=== PATIENT | female | born 1960 | race Caucasian/White ===

== ENCOUNTER 2021-07-22 02:30 | Inpatient (IN) | payer BC, SELFPAY ==
[2021-07-22] VITALS (12 sets, daily range): BP systolic 117–153; BP diastolic 58–91; PULSE 67–92; RESP 13–20; TEMP 35.8–37.3; O2SAT 94–100; BMI 28.1; BMI 32.5; BMI 31.1
--- NOTE | ~2021-07-22 | CT_ITS ---
EXAMINATION: CT FACIAL BONES WITHOUT CONTRAST CLINICAL INFORMATION: Surgical emphysema post dental extraction left side COMPARISON: None TECHNIQUE: Noncontrast multidetector helical imaging was performed through the maxillofacial bones. Coronal and sagittal reformatted images were created. This CT examination was performed using dose optimization techniques as appropriate, variously including the following: *Automated exposure control *Adjustment of mA and/or kV according to patient size (this includes techniques or standardized protocols for targeted exams where dose is matched to indication/reason for exam; i.e. extremities or head) *Use of iterative reconstruction technique DLP: 353 mGy-cm FINDINGS: There are numerous foci of gas in the left side of the face adjacent to the mandible, in the form drafter space, retromaxillary region, parapharyngeal fat, and parotid space as well as extending inferiorly into the submandibular space and tracking along the left sternocleidomastoid muscle; there is also superior extension into the left temporal and periorbital regions including the lateral extraconal fat of the orbit. There is some associated fat stranding throughout the affected left facial region. No discrete fluid collection is seen, though assessment is somewhat limited without intravenous contrast. No acute maxillofacial fractures are seen. The frontal, maxillary, ethmoid, and sphenoid sinuses are well aerated. The uncinate process is normal bilaterally. The infundibula and middle meati are patent. There is leftward deviation of nasal septum. The mandibular condyles are well-seated in the condylar fossa. The globes are intact, and there are no suspicious findings to suggest retrobulbar hemorrhage. Visualized portions of the brain parenchyma are unremarkable. CT/CT facial bones wo con IMPRESSION: Extensive soft tissue gas tracking along the left aspect of the face and neck as described above with some associated soft tissue swelling. No discrete fluid collection identified.
--- NOTE | 2021-07-22 03:41 | ED_ITS ---
HPI - Dental/Oral General Chief complaint: Dental/Oral Stated complaint: dental pain Time Seen by Provider: 07/22/21 03:41 Source: patient Mode of arrival: ambulatory Limitations: no limitations History of Present Illness HPI Narrative: Patient had a dental procedure feeling a deep cavity in left lower premolar area around 17:30 yesterday since the end of the procedure patient noticed swelling of the left face which gradually got worse feel crepitation when she palpated going all the way to the upper neck on the left side-patient denies any difficulty in swallowing or breathing Related Data Home Medications Medication Instructions Recorded Confirmed No Known Home Meds 07/22/21 07/22/21 Allergies Allergy/AdvReac Type Severity Reaction Status Date / Time No Known Drug Allergies Allergy Unknown Unknown Verified 07/22/21 05:32 Review of Systems Review of Systems: Yes all other systems are reviewed and are negative [facility] Social History Social History Alcohol intake: never Patient Tobacco Use Status: Never used Tobacco Smoked in Last 30 Days: No Use of substances other than those prescribed or required for medical reasons: No Advance Directives: No Advance Directives Information Provided: No Physical Exam Vital Signs: Vital Signs: Last Vital Signs Temp 97.9 F 07/22/21 05:37 Pulse 74 07/22/21 05:37 Resp 16 07/22/21 05:37 BP 146/90 H 07/22/21 05:37 Pulse Ox 100 07/22/21 05:37 Body Mass Index 28.1 Const: General: no acute distress and well developed HENMT: Face images: 1. Soft tissue swelling left cheek all the way to the lower eyelid extending to the preauricular area with crepitation Mouth: Normal oral and palatal mucosa present Teeth and gingiva: dentition normal Throat: Yes posterior oropharynx normal Eyes: Other: Swelling left infraorbital area EOMI Neck: Other: Slight soft tissue swelling left side crepitation palpable till mid neck on the left side around SCM muscle Neck: Yes full ROM Chest: Chest palpation & inspection: normal inspection of the chest and normal palpation of entire chest wall Cardio: Rate: regular rate Rhythm: regular rhythm Heart sounds: S1 kyra l heart sound present and S2 normal heart sound present Peripheral pulses: Peripheral pulses 2+ throughout MDM - Dental/Oral MDM Narrative Medical decision making narrative: Patient with surgical emphysema post dental work no airway compromise at this time would get the CT scan to see the extent of erythema. CT scan showed surgical emphysema extending to the neck, sternocleidomastoids muscle , 100% non-rebreather oxygen was applied patient started feeling little better and swelling is slightly getting better. Case discussed with Dr. Mohr college physics instructor will keep patient for observation in ICU will give prophylactic Zosyn and 100% non-rebreather oxygen and watch for airway 5 am No dysarthria no swallowing problem no difficulty in breathing at this time Lab Data Result diagrams: 07/22/21 05:35 07/22/21 05:35 Discharge Plan Discharge Clinical Impression: Emphysema (subcutaneous) (surgical) resulting from a procedure Qualifiers: Encounter type: initial encounter Qualified Code(s): T81.82XA - Emphysema (subcutaneous) resulting from a procedure, initial encounter Patient Disposition: Admitted As Inpatient
--- NOTE | 2021-07-22 05:00 | PC.NURSE ---
PATIENT UP AND ABLE O AMBULATE STEADILY TO THE RESTROOM, AWAITING RESULTS FROM CT SCAN. PATIENT IS BREATHING WITH NO DISTRESS, TALKING IN FULL CLEAR SENTENCES. ON A NON-REBREATHER TO HELP WITH FREE AIR IN SOFT TISSUE OF THE FACE. PATIENT STATING FEELING THE PRESSURE GOING DOWN SINCE STARTING O2 TREATMENT.
--- NOTE | 2021-07-22 05:23 | PC.NURSE ---
PROVIDER CONTACTING TRANSIT PLANNING DIRECTOR REGARDING MONITORING PATIENT TO SEE IF SWELLING REDUCES TO ENSURE NO AIRWAY INVOLVEMENT. PATIENT IS CONCERNED BUT SEEMS REASSURED ONCE SPEAKING WITH PROVIDER. PLAN FOR ICU ADMISSION
[2021-07-22 05:42] LABS: MANUAL DIFF FLAG NO
[2021-07-22 05:44] LABS: Basophils Absolute Auto 0.1 X10*3/uL (0.0-0.2); Basophils Percent Auto 0.6 % (0-2); Eosinophils Absolute Auto 0.1 X10*3/uL (0.0-0.4); Eosinophils Percent Auto 1.1 % (0-4); Hematocrit 43.5 % (37-47); Hemoglobin 14.7 g/dl (12.0-16.0); Imm Gran Abs Auto 0.04 X10*3/uL (0.00-0.03); Imm Gran Pct Auto 0.4 % (0.0-0.4); Lymphocytes Absolute Auto 2.2 X10*3/uL (1.2-4.9); Lymphocytes Percent Auto 20.5 % (20-40); Mean Corpuscular HGB Conc 33.8 g/dl (31.0-35.0); Mean Corpuscular Hemoglobin 30.7 pg (27.0-33.0); Mean Corpuscular Volume 90.8 fL (80-98); Mean Platelet Volume 9.5 fL (9.4-12.3); Monocytes Absolute Auto 0.7 X10*3/uL (0.1-1.2); Monocytes Percent Auto 6.8 % (2-11); Neutrophils Absolute Auto 7.6 X10*3/uL (2.0-8.3); Neutrophils Percent Auto 70.6 % (45-73); Platelet Count 367 X10*3/uL (160-400); Red Blood Count 4.79 X10*6/uL (4.20-5.50); White Blood Count 10.8 X10*3/uL (4.8-10.8)
--- NOTE | 2021-07-22 05:52 | PM.CCHP ---
History of Present Illness Date of Service: 07/22/21 Chief Complaint: Facial swelling This is a 60-year-old female with? no past medical history, who presented to the emergency room with? left facial swelling.? Patient reports she had a dental procedure for a filling of a left lower molar deep cavity? around 1700,? she noted she had left-sided? facial swelling that progressively got worse throughout the night. ? She also reports feeling crepitus? on left cheek. In the ED,? left facial swelling noted,? and crepitus extending from left lower eyelid? to neck region.? Vital signs are stable,? the patient is not in any respiratory distress. Face CT confirmed Extensive soft tissue gas tracking along the left aspect of the face and neck. Patient will be admitted into the ICU? for? closely airway monitoring from subcutaneous facial emphysema? Review of Systems Review of Systems: As stated on HPI, all other systems are negative PMFSH Family History Pertinent family history: Mother- , colon cancer Father- , pancreatic cancer Social History Social History Alcohol intake: never Patient Tobacco Use Status: Never used Tobacco Smoked in Last 30 Days: No Use of substances other than those prescribed or required for medical reasons: No Advance Directives: No Advance Directives Information Provided: No Meds Allergies Allergy/AdvReac Type Severity Reaction Status Date / Time No Known Drug Allergies Allergy Unknown Unknown Verified 07/22/21 05:32 Active Medications: Current Medications Generic Name Dose Route Start Last Admin Trade Name Freq PRN Reason Stop Dose Admin Enoxaparin Sodium 40 mg 07/22/21 06:00 Enoxaparin Sodium 40 Mg/0.4 Ml Syringe SUBCUT Q24H [facility] Home Medications Medication Instructions Recorded Confirmed Last Taken Type No Known Home Meds 07/22/21 07/22/21 Unknown History Physical Exam Vital Signs: Vital Signs: Last Vital Signs Temp 97.9 F 07/22/21 05:37 Pulse 74 07/22/21 05:37 Resp 16 07/22/21 05:37 BP 146/90 H 07/22/21 05:37 Pulse Ox 100 07/22/21 05:37 Body Mass Index 32.5 Constitutional: Alert, in no distress. Mental Status: Oriented to person, place and time. Head: Left sided swelling. Crepitus extending from left orbital to neck region Eyes: Pupils are equal, round and reactive to light. Extraocular muscles intact. Ear, Nose and Throat: Oropharynx clear, mucous membranes moist. Ears and nose without masses, lesions or deformities. Trachea midline. Neck: Supple, Full range of motion. Respiratory: Lungs CTA. No wheezing. Cardiovascular: S1 S2 regular. No murmurs, rubs or gallops. Gastrointestinal: Abdomen soft, non-tender, non-distended. Normal bowel sounds. No pulsatile mass. No hepatosplenomegaly. Genitourinary: No costovertebral angle tenderness. Neurologic: Cranial nerves II-XII grossly intact. No focal neurological deficits. Psychiatric: Normal mood and affect Results Labs CBC and Chem 7: 07/22/21 05:35 07/22/21 05:35 Labs: Laboratory Results - last 24 hr 07/22/21 05:35 MCV 90.8 MCH 30.7 MCHC 33.8 RDW 14.0 Plt Count 367 MPV 9.5 Immature Gran % (Auto) 0.4 Neut % (Auto) 70.6 Lymph % (Auto) 20.5 [place] % (Auto) 6.8 Eos % (Auto) 1.1 Baso % (Auto) 0.6 Lymph # (Auto) 2.2 [place] # (Auto) 0.7 Eos # (Auto) 0.1 Baso # (Auto) 0.1 Abs Immat Gran (auto) 0.04 H Absolute Neuts (auto) 7.6 Absolute Nucleated RBC 0.000 Nucleated RBC % (auto) 0.0 Imaging Radiologist's Impressions: Impressions Face CT 07/22/21 03:59 IMPRESSION: Extensive soft tissue gas tracking along the left aspect of the face and neck as described above with some associated soft tissue swelling. No discrete fluid collection identified. Assessment and Plan (1) Emphysema (subcutaneous) (surgical) resulting from a procedure: Qualifiers: Encounter type: initial encounter Qualified Code(s): T81.82XA - Emphysema (subcutaneous) resulting from a procedure, initial encounter Status: Acute ?60-year-old female with no significant past medical history status post dental procedure now with subcutaneous? facial emphysema Neuro:? No acute issues. Cardiac:? No acute issues. Pulmonary:?? Subcutaneous? facial emphysema form dental procedure:? she is protecting the airway, in no respiratory distress at this time.? ? Received augmentin in the ED? prophylactically.? Will continue antibiotics. Will cont to closely monitor airway.? Renal:? No acute issues.?? Endo:? No acute issues.?? GI:? No acute issues. ID:? No acute issues Heme/Onc:? No acute issues. Psych:? No acute issues. Miscellaneous:? No acute issues. Prophylaxis:? Lovenox , doesn't require GI prophylaxis Diet:? NPO until speech eval? Critical care time spent:? 45 minutes Case discussed with Dr Mohr Critical Care Time 45
[2021-07-22 05:57] LABS: Anion Gap 14 (12-20); Blood Urea Nitrogen 18 mg/dL (9-16); Calcium 9.8 mg/dL (8.4-10.2); Carbon Dioxide 24 mmol/L (22-29); Chloride 109 mmol/L (96-108); Creatinine Clr Calc Pharmacy 85.9; Estimated Glomerular Filt Rate > 60; Glucose Random 106 mg/dL (60-115); Potassium 4.5 mmol/L (3.3-5.1); Sodium 142 mmol/L (135-145)
[2021-07-22 06:07] LABS: COVID-19 Test Negative (Negative)
[2021-07-22] MEDS: Enoxaparin Sodium 40 MG/0.4 ML SYRINGE SUBCUT (07:14)
[2021-07-22] MEDS: PHENobarbitaL sodium 130 MG/ML VIAL 148 MG IM (07:14)
--- NOTE | 2021-07-22 09:40 | MHC.CM.PN ---
Pt staying in ICU for close observation of airway d/t facial emphysema: A&O x 4, independent at baseline: resides with spouse: no services anticipated: pt will contact her family for transportation home. ? CARE team consult prior to d/c secondary to ETOH hx (on phenobarb protocol)
--- NOTE | 2021-07-22 10:23 | PC.NURSE ---
PT REFUSING PHENOBARBITAL. PT EDUCATED, CONTINUES TO REFUSE. MD NOTIFIED, WILL CONTINUE TO MONITOR FOR ANY S&S OF WITHDRAWAL.
[2021-07-22] MEDS: Amoxicillin/Potassium Clav 875 MG TABLET PO (15:09)
[2021-07-23 03:15] VITALS: BP 111/63; PULSE 69; RESP 16; TEMP 36.3; O2SAT 99
[2021-07-23] MEDS: Amoxicillin/Potassium Clav 875 MG TABLET PO (03:22)
[2021-07-23 06:00] VITALS: BMI 30.7
--- NOTE | 2021-07-23 07:49 | P.DS_ITS ---
DS: Providers Provider Date of Service: 07/23/21 Date of admission: 07/22/21 05:24 Primary care physician: Zafar Horowitz MD DS: Diagnosis Discharge Diagnosis (1) Emphysema (subcutaneous) (surgical) resulting from a procedure: Status: Acute DS: Summary Hospital Course Hospital Course: Chief Complaint: Facial swelling This is a 60-year-old female with? no past medical history, who presented to the emergency room with? left facial swelling.? Patient reports she had a dental procedure for a filling of a left lower molar deep cavity? around 1700,? she noted she had left-sided? facial swelling that progressively got worse throughout the night. ? She also reports feeling crepitus? on left cheek. In the ED,? left facial swelling noted,? and crepitus extending from left lower eyelid? to neck region.? Vital signs are stable,? the patient is not in any re spiratory distress. Face CT confirmed Extensive soft tissue gas tracking along the left aspect of the face and neck. Patient will be admitted into the ICU? for? closely airway monitoring from subcutaneous facial emphysema? Hospital course: Patient was observed in the ICU for less thena 6 hours and given oxygen. The subcutaneous emphasyma did not extent, she was given empirc Augmentin to be taken for 5 days. By the next day her face was nearly symetrical to her amazement. She has no dificulty swallowing or breathing and is reassured and she feels comfortable going home. Time Spent with Patient Time attestation: Total time spent providing and/or coordinating discharge services: Discharge coordination time: Greater than 30 minutes Quality: Stroke Does the patient have a stroke diagnosis?: No Physical Exam Vital Signs: Vital Signs: Last Vital Signs Temp 97.3 F 07/23/21 03:15 Pulse 69 07/23/21 03:15 Resp 16 07/23/21 03:15 BP 111/63 07/23/21 03:15 Pulse Ox 99 07/23/21 03:15 Body Mass Index 30.7 General: AO X 3, no acute distress HEENT--nearyly symetrical face with negliegeable residual swelling on the left side, eyes fully open Resp: CTA bilateral CVS: S1,S2,RRR GI: +BS, NT, no distention Skin: No rash Neuro: motor grossly intact Psych: appropriate affect Discharge Plan Discharge Anticipated Discharge Date/Time: 07/23/21 07:46 Patient Disposition: Home, Self-Care Discharge Diagnosis: Subcutaneous emphysema of the face Referrals: Zafar Horowitz MD [Primary Care Provider] - 1 Week Discharge Medications: New amoxicillin-pot clavulanate 875-125 mg Tablet 875 mg PO Q12H Qty: 8 RF: 0 Discharge Orders: Discharge Order (Routine); Ordered 07/23/21 Ordered By: Ivan Sales Diet: advance to usual diet Activity on Discharge: As tolerated Stand Alone Forms: Patient Portal Discharge page Care Plan Goals: prevent rehospitalization Health Concerns: subcutaneous emphaysma from dental work Plan of Treatment: Take Agmentin as recommendedand follow up with your PCP, make your dentist aware of what happened Assessment: As above
--- NOTE | 2021-07-23 08:34 | MHC.CM.PN ---
PT HAS BEEN CLEARED TO DC HOME TODAY WITH NO SERVICES PT WILL SELF ARRANGE TRANSPORT
== END 2021-07-23 09:01 | disposition home or self-care (01) | DRG 813 ==
LOC: HO.ED 05:21 → HO.EDOVER 05:39 → HO.ICU 06:27 → HO.S3 18:26
PROVIDERS: Admitting Provider Registered Nurse Community Health; Emergency Provider Internal Medicine; PCP Internal Medicine; Visit Provider Internal Medicine
DX: T81.82XA Emphysema (subcutaneous) resulting from a procedure, initial encounter (principal); K08.89 Other specified disorders of teeth and supporting structures
CPT/HCPCS: 36415; 70486; 80048; 85025; 87635; 99285; J1650; J2560

== ENCOUNTER 2022-10-24 03:20 | Emergency (ER) | payer BC, SELFPAY ==
--- NOTE | ~2022-10-24 | US_ITS ---
EXAMINATION: US ABDOMEN LIMITED CLINICAL INFORMATION: Right upper quadrant pain. COMPARISON: None TECHNIQUE: Real-time imaging of the right upper quadrant abdominal viscera. FINDINGS: PANCREAS: The pancreas obscured by gas. LIVER: Normal. The liver is normal in size. The liver contour is normal. Parenchymal echogenicity is normal. No focal hepatic lesion. There is no intrahepatic biliary duct dilatation seen. GALLBLADDER: There there is a nonmobile echogenic polyps measuring 0.6 x 0.6 x 0.8 cm. No additional polyps, stones, sludge, wall thickening or pericholecystic fluid. COMMON BILE DUCT: Normal in caliber measuring 0.15 cm in diameter. RIGHT KIDNEY: Normal. No hydronephrosis. No renal calculi or focal parenchymal lesions. The kidney measures 11.14 cm in maximum dimension. FREE FLUID: None. US/US abdomen limited IMPRESSION: Solitary gallbladder polyp without echogenic stones or wall thickening.
--- NOTE | ~2022-10-24 | CT_ITS ---
EXAMINATION: CT ABDOMEN AND PELVIS WITHOUT CONTRAST CLINICAL INFORMATION: Upper abdominal pain COMPARISON: None TECHNIQUE: Multidetector volumetric imaging was performed from the superior aspect of the liver through the pubic symphysis. Sagittal and coronal reformatted images were obtained on the technologist's workstation. This CT examination was performed using dose optimization techniques as appropriate, variously including the following: *Automated exposure control *Adjustment of mA and/or kV according to patient size (this includes techniques or standardized protocols for targeted exams where dose is matched to indication/reason for exam; i.e. extremities or head) *Use of iterative reconstruction technique DLP: 687 mGy-cm FINDINGS: LUNG BASES: The visualized lung bases are unremarkable. LIVER, GALLBLADDER, AND BILIARY TREE: The liver is normal in size, shape, and attenuation. No focal hepatic lesion or biliary ductal dilatation is identified. The gallbladder is unremarkable with no evidence of radiopaque gallstones, gallbladder wall thickening, or obvious pericholecystic inflammatory changes. PANCREAS: Unremarkable. SPLEEN: Unremarkable. ADRENAL GLANDS: Left adrenal gland is unremarkable. There is an approximately 1 cm right adrenal nodule on coronal image 53 measuring 6 Hounsfield units, most consistent with a lipid rich adenoma. KIDNEYS AND URETERS: The kidneys are normal in size, shape, and attenuation. No hydronephrosis, hydroureter, or calculi seen. No perinephric stranding. BLADDER: Unremarkable. GASTROINTESTINAL TRACT: No evidence of bowel obstruction or significant wall thickening. The appendix is unremarkable. No free fluid or free air is seen. ABDOMINAL WALL: No significant hernia is appreciated. LYMPH NODES: Normal. VASCULAR: Unremarkable. PELVIC VISCERA: Unremarkable. OSSEOUS STRUCTURES: There is facet arthropathy at L4-L5 with grade 1 anterolisthesis of L4 on L5. CT/CT abdomen pelvis wo IV con IMPRESSION: No acute findings identified in the abdomen/pelvis.
[2022-10-24 03:55] VITALS: BP 149/95; PULSE 77; RESP 18; TEMP 36.7; O2SAT 99; BMI 28.8
[2022-10-24 04:22] LABS: Hematocrit 45.8 % (37.0-47.0); Hemoglobin 15.1 g/dl (12.0-16.0); Mean Corpuscular Hemoglobin 29.5 pg (27.0-33.0); Mean Corpuscular Volume 89.6 fL (80.0-98.0); Mean Platelet Volume 9.8 fL (9.4-12.3); Platelet Count 307 X10*3/uL (160-400); Red Blood Count 5.11 X10*6/uL (4.20-5.50); Red Cell Distribution Width 13.7 % (11.0-16.0); White Blood Count 7.3 X10*3/uL (4.8-10.8)
[2022-10-24 04:29] LABS: Appearance Urine Clear; Color Urine Yellow; Glucose Urine UA Negative (Negative); Leukocyte Esterase Urine Moderate (2+) (Negative); Nitrite Urine Negative (Negative); PH 5.5 (5.0-9.0); UMIC TRIGGER UACC YES; Urine Blood Negative (Negative); Urine Ketones Negative (Negative); Urine Protein Negative (Neg-Trace)
[2022-10-24 04:34] LABS: Bacteria Urine Trace (None Seen); Hyaline Casts Urine 0-2 /LPF (0-2); RBC Urine 0-2 /HPF (0-2); UACC Culture Trigger YES; WBC Urine 21-50 /HPF (0-5)
[2022-10-24 04:46] LABS: Alanine Aminotransferase 12 U/L (0-31); Albumin Level 4.1 g/dL (3.5-5.0); Alkaline Phosphatase 46 U/L (39-117); Anion Gap 11 (12-20); Aspartate Amino Transferase 16 U/L (5-31); Bilirubin Direct 0.2 mg/dL (0.0-0.5); Bilirubin Total 0.7 mg/dL (0.0-1.0); Blood Urea Nitrogen 17 mg/dL (9-16); Calcium 9.3 mg/dL (8.4-10.2); Carbon Dioxide 25 mmol/L (22-29); Chloride 110 mmol/L (96-108); Creatinine Clr Calc Pharmacy 63.8; Estimated Glomerular Filt Rate 56; Glucose Random 111 mg/dL (60-115); Lipase 14 U/L (8-78); Sodium 142 mmol/L (135-145); Total Protein 6.4 g/dL (6.5-8.0)
[2022-10-24 04:58] LABS: Influenza A PCR NEGATIVE (Negative); Influenza B PCR NEGATIVE (Negative); Resp Syncy Virus RNA Qual PCR NEGATIVE (Negative); SARS COV2 PCR INHOUSE NEGATIVE (Negative)
[2022-10-24 05:14] VITALS: BP 150/82; PULSE 70; RESP 16; TEMP 36.8; O2SAT 99
--- NOTE | 2022-10-24 05:22 | PC.NURSE ---
PT A&Ox3, reports upper right quadrant pain described as dull, aggravating after eating. Reports pain 05/14. Denies N/V/D. Onset was 36 hours prior. Abd non distended, BSx4 quadrants, VSS.
[2022-10-24 06:22] VITALS: BP 157/80; PULSE 87; RESP 14; TEMP 36.8; O2SAT 99
[2022-10-24] MEDS: Lidocaine HCl Viscous 2 % 15 ML SOLUTION 10 ML MUCOUS MEM (07:33)
[2022-10-24] MEDS: Magnesium Hydrox/Alum Hydrox 30 ML ORAL.SUSP PO (07:33)
--- NOTE | 2022-10-24 07:34 | ED.ABDPAIN ---
HPI - Abdominal Pain General Chief Complaint: Abdominal Pain Stated Complaint: upper abdominal pain Time Seen by Provider: 10/24/22 05:27 Source: patient Mode of arrival: ambulatory History of Present Illness HPI narrative: 62-year-old female without significant past medical history states that she has been having right upper quadrant pain for approximately 36 hours and states that the pain is dull, does not radiate anywhere, and denies any associated nausea, vomiting, fever, chills but states that the pain ?waxes and wanes?. Patient does endorse having had a few alcoholic drinks Sunday evening and states she has started drinking a little bit more than usual given the stressors of her ongoing divorce for the past 2 years. Patient is family history is significant for a father who is secondary to pancreatic cancer Related Data Previous Rx's Medication Instructions Recorded amoxicillin 875 mg-potassium 875 mg PO Q12H #8 tabs 07/23/21 clavulanate 125 mg tablet Allergies Allergy/AdvReac Type Severity Reaction Status Date / Time sulfur dioxide Allergy Rash Verified 07/22/21 08:58 Review of Systems Review of Systems Pertinent positives and negatives as stated in HPI 10 point review of systems is otherwise negative. PMFSH Past Medical History Source: nursing notes reviewed Social History Social History Household Members: None Housing: House Do you presently have visiting nurse or other home services: No Alcohol intake: current Alcohol intake frequency: 0-2 drinks per day Alcohol type: wine Patient Tobacco Use Status: Never used Tobacco Smoked in Last 30 Days: No Use of substances other than those prescribed or required for medical reasons: No Advance Directives: No Patient : No service: No Current occupational status: employed Physical Exam ED Vital Signs: Vital Signs - 24 hr 10/24/22 03:55 10/24/22 05:14 10/24/22 06:22 Temperature 98.0 F 98.3 F 98.3 F Pulse Rate 77 70 87 Respiratory Rate 18 16 14 Blood Pressure 149/95 H 150/82 H 157/80 H Pulse Oximetry 99 99 99 Oxygen Delivery Method Room Air Room Air Room Air BMI result Body Mass Index 28.8 VITAL SIGNS: Reviewed. GENERAL: Well developed, well nourished, in no acute distress. HEAD: Normocephalic/atraumatic EYES: PERRLA, EOMI EARS: Ext canals without abnormality OROPHARYNX: no oral lesions noted, posterior pharynx clear LUNGS: Normal breath sounds. No adventitious sounds or accessory muscle use. SpO2<99> CARDIOVASCULAR: Regular rate and rhythm without noted murmurs ABDOMEN: Soft, no right upper quadrant pain, but there is epigastric/left upper quadrant discomfort, non-distended with bowel sounds. MUSCULOSKELETAL: No tenderness, deformities, or effusions noted on gross inspection. EXTREMITIES: No cyanosis, clubbing or edema. SKIN: Inspection of the skin reveals no rashes NEUROLOGIC: Alert and oriented x 4. Strength and sensation to light touch were grossly intact x 4. Course Course Course Narrative: 62-year-old female with history and clinical presentation initially thought to be possible cholecystitis and/or pancreatitis but there is a possibility of gastritis. On review of all investigations there are no acute findings to suggest pancreatitis, CT scan is negative for acute findings, patient is afebrile. Will pursue ultrasound of the right upper quadrant to evaluate the gallbladder although patient does not have a leukocytosis or constitutional symptoms to support a cholecystitis. Patient received a GI cocktail. Signed out to Dr Robertson follow up US. Medical Decision Making Lab Data Result Diagrams: 10/24/22 04:16 10/24/22 04:16 Labs: Lab Results 10/24/22 10/24/22 10/24/22 Range/Units 04:16 04:16 04:16 WBC 7.3 (4.8-10.8) X10*3/uL RBC 5.11 (4.20-5.50) X10*6/uL Hgb 15.1 (12.0-16.0) g/dl Hct 45.8 (37.0-47.0) % MCV 89.6 (80.0-98.0) fL MCH 29.5 (27.0-33.0) pg MCHC 33.0 (31.0-35.0) g/dl RDW 13.7 (11.0-16.0) % Plt Count 307 (160-400) X10*3/uL MPV 9.8 (9.4-12.3) fL Absolute Nucleated RBC 0.000 (0.0-0.012) X10*3/uL Nucleated RBC % (auto) 0.0 (0.0-0.2) /100WBC Sodium 142 (135-145) mmol/L Potassium 4.0 (3.3-5.1) mmol/L Chloride 110 H (96-108) mmol/L Carbon Dioxide 25 (22-29) mmol/L Anion Gap 11 L (12-20) BUN 17 H (9-16) mg/dL Creatinine 0.99 (0.5-1.4) mg/dL Estim Creat Clear Calc 63.8 Estimated GFR 56 Random Glucose 111 (60-115) mg/dL Calcium 9.3 (8.4-10.2) mg/dL Total Bilirubin 0.7 (0.0-1.0) mg/dL Direct Bilirubin 0.2 (0.0-0.5) mg/dL AST 16 (5-31) U/L ALT 12 (0-31) U/L Alkaline Phosphatase 46 (39-117) U/L Total Protein 6.4 L (6.5-8.0) g/dL Albumin 4.1 (3.5-5.0) g/dL Lipase 14 (8-78) U/L Urine Color Urine Appearance Urine pH (5.0-9.0) Ur Specific [place] (1.005-1.025) Urine Protein (Neg-Trace) mg/dL Urine Glucose (UA) (Negative) mg/dL Urine Ketones (Negative) mg/dL Urine Blood (Negative) Urine Nitrite (Negative) Ur Leukocyte Esterase (Negative) Urine RBC (0-2) /HPF Urine WBC (0-5) /HPF Ur Squamous Epith Cells (0-2) /HPF Urine Bacteria (None Seen) Hyaline Casts (0-2) /LPF Influenza Type A (PCR) NEGATIVE (Negative) Influenza Type B (PCR) NEGATIVE (Negative) RSV RNA Qual (PCR) NEGATIVE (Negative) SARS-CoV-2 RNA (RT-PCR) NEGATIVE (Negative) 10/24/22 Range/Units 04:24 WBC (4.8-10.8) X10*3/uL RBC (4.20-5.50) X10*6/uL Hgb (12.0-16.0) g/dl Hct (37.0-47.0) % MCV (80.0-98.0) fL MCH (27.0-33.0) pg MCHC (31.0-35.0) g/dl RDW (11.0-16.0) % Plt Count (160-400) X10*3/uL MPV (9.4-12.3) fL Absolute Nucleated RBC (0.0-0.012) X10*3/uL Nucleated RBC % (auto) (0.0-0.2) /100WBC Sodium (135-145) mmol/L Potassium (3.3-5.1) mmol/L Chloride (96-108) mmol/L Carbon Dioxide (22-29) mmol/L Anion Gap (12-20) BUN (9-16) mg/dL Creatinine (0.5-1.4) mg/dL Estim Creat Clear Calc Estimated GFR Random Glucose (60-115) mg/dL Calcium (8.4-10.2) mg/dL Total Bilirubin (0.0-1.0) mg/dL Direct Bilirubin (0.0-0.5) mg/dL AST (5-31) U/L ALT (0-31) U/L Alkaline Phosphatase (39-117) U/L Total Protein (6.5-8.0) g/dL Albumin (3.5-5.0) g/dL Lipase (8-78) U/L Urine Color Yellow Urine Appearance Clear Urine pH 5.5 (5.0-9.0) Ur Specific [place] 1.010 (1.005-1.025) Urine Protein Negative (Neg-Trace) mg/dL Urine Glucose (UA) Negative (Negative) mg/dL Urine Ketones Negative (Negative) mg/dL Urine Blood Negative (Negative) Urine Nitrite Negative (Negative) Ur Leukocyte Esterase Moderate (2+) H (Negative) Urine RBC 0-2 (0-2) /HPF Urine WBC 21-50 H (0-5) /HPF Ur Squamous Epith Cells 11-20 (0-2) /HPF Urine Bacteria Trace (None Seen) Hyaline Casts 0-2 (0-2) /LPF Influenza Type A (PCR) (Negative) Influenza Type B (PCR) (Negative) RSV RNA Qual (PCR) (Negative) SARS-CoV-2 RNA (RT-PCR) (Negative) Medications Administered Discontinued Medications Generic Name Dose Route Start Last Admin Trade Name Freq PRN Reason Stop Dose Admin Al Hydroxide/Mg Hydroxide 30 ml 10/24/22 07:04 10/24/22 07:33 Magnesium Hydrox/Alum Hydrox 30 Ml Oral.Susp PO 10/24/22 07:05 30 ml ONCE ONE Administration Lidocaine HCl 10 ml 10/24/22 07:04 10/24/22 07:33 Lidocaine Hcl Viscous 2 % 15 Ml Solution MUCOUS MEM 10/24/22 07:05 10 ml ONCE ONE Administration Discharge Plan Discharge Clinical Impression: Abdominal pain, RUQ Patient Disposition: Still a Patient Prescriptions: No Action amoxicillin-pot clavulanate 875-125 mg Tablet 875 mg PO Q12H Qty: 8 0RF
[2022-10-24 09:39] VITALS: BP 115/67; PULSE 71; RESP 18; TEMP 36.6; O2SAT 97
== END 2022-10-24 13:07 | disposition admitted as inpatient to this hospital (09) ==
PROVIDERS: Student in an Organized Health Care Education/Training Program; Emergency Provider Emergency Medicine Emergency Medical Services; PCP Internal Medicine
DX: R10.11 Right upper quadrant pain (principal); Z20.822 Contact with and (suspected) exposure to COVID-19
CPT/HCPCS: 0241U; 36415; 74176; 76705; 80053; 81001; 82248; 83690; 85027; 87086; 99284